=== PATIENT | male | born 1950 | race Caucasian/White ===

== ENCOUNTER 2021-10-17 16:50 | Inpatient (IN) ==
[2021-10-17] MEDS ORDERED: Ondansetron 4 MG/2 ML VIAL IVP PRN (19:20)
[2021-10-17] MEDS ORDERED: Naloxone 0.4 MG/ML INJ IVP PRN (19:20)
[2021-10-17] MEDS: 0.9 % Sodium Chloride 1,000 ML IVC SCH (20:11)
[2021-10-17] MEDS: Pantoprazole 40 MG VIAL IVP SCH (23:10)
[2021-10-17] MEDS ORDERED: Tetracaine/Benzocaine/Butamben 1 SPRAY AEROSOL MM ONE (23:52)
[2021-10-17] MEDS ORDERED: *HR* LORazepam 2 MG/ML VIAL IVP ONE (23:52)
[2021-10-18] MEDS ORDERED: *HR* LORazepam 2 MG/ML VIAL IVP ONE (02:30)
[2021-10-18] MEDS ORDERED: Tetracaine/Benzocaine/Butamben 1 SPRAY AEROSOL MM ONE (02:30)
[2021-10-18 03:30] LABS: Basophils # 0.1 K/mcL (0.0-0.2); Basophils % 0.4 %; Eosinophils # 1.1 K/mcL (0.0-0.6); Eosinophils % 8.4 %; Hematocrit 42.2 % (37.5-50.1); Hemoglobin 13.6 g/dL (12.9-16.9); Immature Granulocytes % 0.4 % (0-4); Lymphocytes # 1.3 K/mcL (0.6-4.6); Lymphocytes % 9.8 %; Mean Corpuscular HGB Conc 32.2 g/dL (31.6-35.5); Mean Corpuscular Hemoglobin 31.9 pg (28.0-33.3); Mean Corpuscular Volume 98.8 fL (83.0-100.0); Monocytes # 1.2 K/mcL (0.0-1.3); Monocytes % 9.3 %; Neutrophils # 9.4 K/mcL (1.6-8.9); Platelet Count 264 K/mcL (140-400); Prothrombin Time 11.3 Seconds (9.4-12.1); Red Blood Count 4.27 M/mcL (4.19-5.50); Segmented Neutrophils % 71.7 %; White Blood Count 13.1 K/mcL (4.3-11.1)
[2021-10-18] MEDS: 0.9 % Sodium Chloride 1,000 ML IVC SCH (03:34)
[2021-10-18 03:45] LABS: Calcium 8.8 mg/dL (8.6-10.3); Magnesium 1.9 mg/dL (1.6-2.6); Phosphorous 4.1 mg/dL (2.7-4.5); Potassium 2.9 mEq/L (3.5-5.1)
[2021-10-18] MEDS: *HR* Heparin 5,000 UNIT/ML VIAL SQ SCH ×3 (06:18→20:59)
[2021-10-18] MEDS ORDERED: Ipratropium/Albuterol Neb 3 ML IH PRN (07:10)
[2021-10-18] MEDS: Pantoprazole 40 MG VIAL IVP SCH (08:10)
[2021-10-18] MEDS: 0.9 % Sodium Chloride w KCl 20 MEQ/1,000 ML MLS IVC SCH ×2 (08:13→16:39)
[2021-10-18] MEDS: Clotrimazole 1% CRM 15 GM TUBE TP SCH ×2 (15:04→20:59)
[2021-10-18] MEDS: *HR* LORazepam 2 MG/ML VIAL IVP SCH (20:58)
[2021-10-18] MEDS: Budesonide/Formoterol 80/4.5 1 PUFF INH IH SCH (20:58)
[2021-10-18] MEDS ORDERED: ALPRAZolam 1 MG TABLET PO SCH (21:00)
[2021-10-19] MEDS: 0.9 % Sodium Chloride w KCl 20 MEQ/1,000 ML MLS IVC SCH ×4 (00:47→22:13)
[2021-10-19 05:07] LABS: Basophils # 0.1 K/mcL (0.0-0.2); Basophils % 0.6 %; Eosinophils # 0.6 K/mcL (0.0-0.6); Eosinophils % 6.6 %; Hematocrit 43.1 % (37.5-50.1); Hemoglobin 13.9 g/dL (12.9-16.9); Immature Granulocytes % 0.5 % (0-4); Lymphocytes # 1.3 K/mcL (0.6-4.6); Lymphocytes % 15.3 %; Mean Corpuscular HGB Conc 32.3 g/dL (31.6-35.5); Mean Corpuscular Hemoglobin 32.1 pg (28.0-33.3); Mean Corpuscular Volume 99.5 fL (83.0-100.0); Mean Platelet Volume 10.9 fL (9.4-12.4); Monocytes # 1.1 K/mcL (0.0-1.3); Neutrophils # 5.7 K/mcL (1.6-8.9); Platelet Count 249 K/mcL (140-400); Red Blood Count 4.33 M/mcL (4.19-5.50); Red Cell Distribution Width 13.2 % (11.5-14.5); White Blood Count 8.8 K/mcL (4.3-11.1)
[2021-10-19] MEDS: *HR* Heparin 5,000 UNIT/ML VIAL SQ SCH ×3 (05:54→22:14)
[2021-10-19] MEDS: Budesonide/Formoterol 80/4.5 1 PUFF INH IH SCH ×2 (07:51→22:57)
[2021-10-19 07:56] LABS: BUN/Creatinine Ratio 32 (6-26); Blood Urea Nitrogen 32 mg/dL (8-23); Carbon Dioxide 32 mEq/L (23-29); Chloride 97 mEq/L (98-107); Glucose 83 mg/dL (70-105); Osmolality,Calculated 296 (280-300); Potassium 3.3 mEq/L (3.5-5.1); Sodium 140 mEq/L (136-145); eGFR For African Americans > 60 (> 60); eGFR For Non-African Americans > 60 (> 60)
[2021-10-19] MEDS: Pantoprazole 40 MG VIAL IVP SCH (08:36)
[2021-10-19] MEDS: Clotrimazole 1% CRM 15 GM TUBE TP SCH ×2 (17:46→22:14)
[2021-10-19] MEDS: *HR* LORazepam 2 MG/ML VIAL IVP SCH (22:14)
[2021-10-19] MEDS: Piperacillin/Tazobactam 3.375 GM in 0.9 % Sodium Chloride Mini Bag 100 ML IVPB SCH (23:20)
[2021-10-20] MEDS ORDERED: Acetaminophen IV 1,000 MG/100 ML BAG IVPB ONE (01:00)
[2021-10-20] MEDS: Piperacillin/Tazobactam 3.375 GM in 0.9 % Sodium Chloride Mini Bag 100 ML IVPB SCH (06:23)
[2021-10-20] MEDS: 0.9 % Sodium Chloride w KCl 20 MEQ/1,000 ML MLS IVC SCH ×2 (06:24→14:32)
[2021-10-20] MEDS: *HR* Heparin 5,000 UNIT/ML VIAL SQ SCH ×3 (06:24→21:32)
[2021-10-20] MEDS ORDERED: Oxymetazoline Nasal SPRAY BOTTLE 15ML NS STA (07:45)
[2021-10-20] MEDS: Pantoprazole 40 MG VIAL IVP SCH (07:51)
[2021-10-20] MEDS ORDERED: *HR* FentaNYL (PF) 100 MCG/2 ML VIAL IVP PRN (08:19)
[2021-10-20] MEDS ORDERED: Racepinephrine Neb 0.5 ML VIAL IH PRN (08:19)
[2021-10-20] MEDS ORDERED: Ondansetron 4 MG/2 ML VIAL IVP PRN ×2 (08:19→12:15)
[2021-10-20] MEDS ORDERED: Acetaminophen IV 1,000 MG/100 ML BAG IVPB PRN (08:19)
[2021-10-20] MEDS ORDERED: *HR* Meperidine 25 MG/ML SYRINGE IVP PRN (08:19)
[2021-10-20] MEDS ORDERED: Albuterol 2.5 MG/3 ML NEBULIZER IH PRN (08:19)
[2021-10-20] MEDS ORDERED: *HR* OxyCODONE Immed Rel 5 MG TABLET PO PRN (08:19)
[2021-10-20] MEDS ORDERED: *HR* Labetalol 20 MG/4 ML SYRINGE IVP PRN (08:19)
[2021-10-20] MEDS ORDERED: Ipratropium Neb 0.5 MG NEBULIZER IH PRN (08:19)
[2021-10-20 08:27] LABS: Basophils # 0.1 K/mcL (0.0-0.2); Basophils % 0.6 %; Eosinophils # 0.4 K/mcL (0.0-0.6); Eosinophils % 3.8 %; Hematocrit 46.2 % (37.5-50.1); Hemoglobin 15.1 g/dL (12.9-16.9); Immature Granulocytes % 0.4 % (0-4); Lymphocytes # 1.5 K/mcL (0.6-4.6); Lymphocytes % 14.6 %; Mean Corpuscular HGB Conc 32.7 g/dL (31.6-35.5); Mean Corpuscular Hemoglobin 32.3 pg (28.0-33.3); Mean Corpuscular Volume 98.9 fL (83.0-100.0); Mean Platelet Volume 10.5 fL (9.4-12.4); Neutrophils # 7.1 K/mcL (1.6-8.9); Platelet Count 300 K/mcL (140-400); Red Blood Count 4.67 M/mcL (4.19-5.50); Red Cell Distribution Width 13.6 % (11.5-14.5); Segmented Neutrophils % 70.6 %; White Blood Count 10.1 K/mcL (4.3-11.1)
[2021-10-20 08:45] LABS: BUN/Creatinine Ratio 35 (6-26); Blood Urea Nitrogen 40 mg/dL (8-23); Calcium 9.9 mg/dL (8.6-10.3); Carbon Dioxide 35 mEq/L (23-29); Chloride 97 mEq/L (98-107); Glucose 96 mg/dL (70-105); Magnesium 2.3 mg/dL (1.6-2.6); Osmolality,Calculated 310 (280-300); Phosphorous 3.4 mg/dL (2.7-4.5); Potassium 3.7 mEq/L (3.5-5.1); Sodium 145 mEq/L (136-145); eGFR For African Americans > 60 (> 60); eGFR For Non-African Americans > 60 (> 60)
[2021-10-20] MEDS ORDERED: *HR* Propofol 200 MG/20 ML VIAL IVP ONE (08:49)
[2021-10-20] MEDS ORDERED: Lidocaine -MPF 2% 2 ML VIAL ONE (08:49)
[2021-10-20] MEDS ORDERED: Ketamine HCL *QUVA* 50mg (1mL) SYRINGE ONE ×2 (08:49→10:49)
[2021-10-20] MEDS ORDERED: Lidocaine -MPF 4% 5 ML AMPUL ONE (08:49)
[2021-10-20] MEDS ORDERED: *HR* Rocuronium Bromide 50 MG/5 ML VIAL ONE ×3 (08:49→10:02)
[2021-10-20] MEDS ORDERED: *HR* OxyCODONE Immed Rel 5 MG TABLET GTUBE PRN (09:06)
[2021-10-20] MEDS ORDERED: Ipratropium/Albuterol Neb 3 ML IH ONE (09:06)
[2021-10-20] MEDS ORDERED: Albumin Human 5% 25.0 GM/500 ML IV.SOLN ONE (09:12)
[2021-10-20] MEDS ORDERED: *HR* Succinylcholine 200 MG/10 ML VIAL IVP ONE (09:27)
[2021-10-20] MEDS ORDERED: *HR* FentaNYL (PF) 100 MCG/2 ML VIAL ONE ×2 (09:56→10:45)
[2021-10-20] MEDS ORDERED: *HR* Labetalol 20 MG/4 ML SYRINGE IVP ONE (09:59)
[2021-10-20] MEDS ORDERED: ROPIVACAINE/PF/NS 0.25% 1 EACH SYRINGE INTRAART ONE (10:23)
[2021-10-20] MEDS: Budesonide/Formoterol 80/4.5 1 PUFF INH IH SCH ×2 (10:27→20:08)
[2021-10-20] MEDS ORDERED: *HR* Midazolam HCl 2 MG/2 ML VIAL ONE (10:48)
[2021-10-20] MEDS ORDERED: *HR* HYDROMORPHONE 2 MG/ML VIAL ONE (10:48)
[2021-10-20] MEDS: *HR* HYDROmorphone PF 0.5 MG/0.5 ML SYRINGE IVP PRN ×6 (11:10→11:55)
[2021-10-20] MEDS ORDERED: *HR* HYDROmorphone (PF) 1 MG/ML SYRINGE ONE (11:49)
[2021-10-20] MEDS ORDERED: Naloxone 0.4 MG/ML INJ IVP PRN (12:15)
[2021-10-20] MEDS ORDERED: Ipratropium/Albuterol Neb 3 ML IH PRN (12:15)
[2021-10-20] MEDS: Clotrimazole 1% CRM 15 GM TUBE TP SCH (21:00)
[2021-10-20] MEDS: *HR* LORazepam 2 MG/ML VIAL IVP SCH (21:31)
[2021-10-20] MEDS ORDERED: *HR* HYDROmorphone PCA *PREMADE* 20 MG/1MG/ML (20mL) PCA VIAL IVC PRN (22:12)
[2021-10-20] MEDS ORDERED: *HR* HYDROmorphone (PF) 1 MG/ML SYRINGE IVP ONE (22:12)
[2021-10-21 04:16] LABS: Basophils % 0.3 %; Eosinophils # 0.1 K/mcL (0.0-0.6); Eosinophils % 0.6 %; Hematocrit 42.1 % (37.5-50.1); Hemoglobin 13.7 g/dL (12.9-16.9); Immature Granulocytes % 0.5 % (0-4); Lymphocytes # 1.5 K/mcL (0.6-4.6); Lymphocytes % 11.4 %; Mean Corpuscular HGB Conc 32.5 g/dL (31.6-35.5); Mean Corpuscular Hemoglobin 32.7 pg (28.0-33.3); Mean Corpuscular Volume 100.5 fL (83.0-100.0); Mean Platelet Volume 10.6 fL (9.4-12.4); Monocytes # 1.5 K/mcL (0.0-1.3); Monocytes % 11.7 %; Neutrophils # 9.9 K/mcL (1.6-8.9); Platelet Count 267 K/mcL (140-400); Red Blood Count 4.19 M/mcL (4.19-5.50); Red Cell Distribution Width 13.9 % (11.5-14.5); Segmented Neutrophils % 75.5 %; White Blood Count 13.1 K/mcL (4.3-11.1)
[2021-10-21 04:30] LABS: BUN/Creatinine Ratio 35 (6-26); Blood Urea Nitrogen 33 mg/dL (8-23); Calcium 8.8 mg/dL (8.6-10.3); Carbon Dioxide 34 mEq/L (23-29); Chloride 105 mEq/L (98-107); Glucose 98 mg/dL (70-105); Magnesium 1.9 mg/dL (1.6-2.6); Osmolality,Calculated 309 (280-300); Phosphorous 3.2 mg/dL (2.7-4.5); Potassium 3.8 mEq/L (3.5-5.1); Sodium 146 mEq/L (136-145); eGFR For African Americans > 60 (> 60); eGFR For Non-African Americans > 60 (> 60)
[2021-10-21] MEDS: *HR* Heparin 5,000 UNIT/ML VIAL SQ SCH ×3 (05:16→20:12)
[2021-10-21] MEDS: 0.9 % Sodium Chloride w KCl 20 MEQ/1,000 ML MLS IVC SCH ×2 (07:27→08:01)
[2021-10-21] MEDS: Pantoprazole 40 MG VIAL IVP SCH (07:54)
[2021-10-21] MEDS: Budesonide/Formoterol 80/4.5 1 PUFF INH IH SCH ×2 (07:56→20:22)
[2021-10-21] MEDS ORDERED: Acetaminophen IV 1,000 MG/100 ML BAG IVPB SCH (08:00)
[2021-10-21] MEDS ORDERED: Chloraseptic Spray 177 ML BOTTLE MM PRN (09:05)
[2021-10-21] MEDS ORDERED: Saliva Stimulant 44.3ml BOTTLE PO PRN (09:05)
[2021-10-21] MEDS: Acetaminophen IV 1,000 MG/100 ML BAG IVPB SCH ×3 (10:28→22:34)
[2021-10-21] MEDS: Acetylcysteine 10% 2 ML INHSOL IH SCH ×6 (11:18→23:49)
[2021-10-21] MEDS: Ipratropium/Albuterol Neb 3 ML IH SCH ×4 (11:24→23:49)
[2021-10-21] MEDS: Clotrimazole 1% CRM 15 GM TUBE TP SCH ×2 (13:16→22:34)
[2021-10-21] MEDS ORDERED: D5% in 0.45% NACL w KCl 20 MEQ/1,000 ML MLS IVC SCH (16:45)
[2021-10-21] MEDS: *HR* LORazepam 2 MG/ML VIAL IVP SCH (20:05)
[2021-10-21] MEDS ORDERED: *HR* Labetalol 20 MG/4 ML SYRINGE IVP ONE (23:55)
[2021-10-22] MEDS ORDERED: 0.9 % Sodium Chloride 500 ML IVC SCH (03:00)
[2021-10-22] MEDS: Acetaminophen IV 1,000 MG/100 ML BAG IVPB SCH ×4 (03:23→21:56)
[2021-10-22] MEDS: Acetylcysteine 10% 2 ML INHSOL IH SCH ×6 (04:05→23:38)
[2021-10-22] MEDS: Ipratropium/Albuterol Neb 3 ML IH SCH ×6 (04:05→23:38)
[2021-10-22] MEDS: *HR* Heparin 5,000 UNIT/ML VIAL SQ SCH ×3 (05:29→21:46)
[2021-10-22] MEDS: Budesonide/Formoterol 80/4.5 1 PUFF INH IH SCH ×2 (07:34→19:54)
[2021-10-22 08:02] LABS: Basophils # 0.1 K/mcL (0.0-0.2); Basophils % 0.5 %; Eosinophils # 0.9 K/mcL (0.0-0.6); Eosinophils % 8.1 %; Hemoglobin 13.4 g/dL (12.9-16.9); Immature Granulocytes % 0.6 % (0-4); Lymphocytes # 1.4 K/mcL (0.6-4.6); Lymphocytes % 12.8 %; Mean Corpuscular HGB Conc 31.9 g/dL (31.6-35.5); Mean Corpuscular Hemoglobin 32.4 pg (28.0-33.3); Mean Corpuscular Volume 101.4 fL (83.0-100.0); Mean Platelet Volume 10.8 fL (9.4-12.4); Monocytes % 9.1 %; Neutrophils # 7.7 K/mcL (1.6-8.9); Platelet Count 235 K/mcL (140-400); Red Blood Count 4.14 M/mcL (4.19-5.50); Red Cell Distribution Width 13.7 % (11.5-14.5); Segmented Neutrophils % 68.9 %; White Blood Count 11.1 K/mcL (4.3-11.1)
[2021-10-22] MEDS ORDERED: Furosemide 40 MG/4 ML VIAL IVP ONE (08:04)
[2021-10-22 08:07] LABS: BUN/Creatinine Ratio 33 (6-26); Blood Urea Nitrogen 28 mg/dL (8-23); Calcium 8.9 mg/dL (8.6-10.3); Carbon Dioxide 36 mEq/L (23-29); Chloride 105 mEq/L (98-107); Glucose 113 mg/dL (70-105); Magnesium 1.9 mg/dL (1.6-2.6); Osmolality,Calculated 308 (280-300); Phosphorous 2.7 mg/dL (2.7-4.5); Potassium 3.4 mEq/L (3.5-5.1); Sodium 146 mEq/L (136-145); eGFR For African Americans > 60 (> 60); eGFR For Non-African Americans > 60 (> 60)
[2021-10-22] MEDS: Pantoprazole 40 MG VIAL IVP SCH (09:50)
[2021-10-22] MEDS: Clotrimazole 1% CRM 15 GM TUBE TP SCH ×2 (09:51→21:45)
[2021-10-22] MEDS: Ketorolac 30 MG/ML VIAL IVP SCH ×2 (12:45→18:21)
[2021-10-22] MEDS ORDERED: D5% in Water 1,000 ML IVC SCH (15:00)
[2021-10-22] MEDS: *HR* LORazepam 2 MG/ML VIAL IVP SCH (21:40)
[2021-10-23] MEDS: Ketorolac 30 MG/ML VIAL IVP SCH ×4 (01:09→17:46)
[2021-10-23] MEDS: Acetylcysteine 10% 2 ML INHSOL IH SCH ×6 (03:40→23:37)
[2021-10-23] MEDS: Ipratropium/Albuterol Neb 3 ML IH SCH ×6 (03:40→23:37)
[2021-10-23] MEDS: Acetaminophen IV 1,000 MG/100 ML BAG IVPB SCH ×4 (05:58→21:43)
[2021-10-23] MEDS: *HR* Heparin 5,000 UNIT/ML VIAL SQ SCH ×3 (06:00→21:49)
[2021-10-23 06:19] LABS: Basophils # 0.1 K/mcL (0.0-0.2); Basophils % 0.6 %; Eosinophils # 1.5 K/mcL (0.0-0.6); Eosinophils % 11.3 %; Hematocrit 44.1 % (37.5-50.1); Hemoglobin 14.4 g/dL (12.9-16.9); Immature Granulocytes % 0.7 % (0-4); Lymphocytes # 1.8 K/mcL (0.6-4.6); Lymphocytes % 13.4 %; Mean Corpuscular HGB Conc 32.7 g/dL (31.6-35.5); Mean Corpuscular Hemoglobin 32.6 pg (28.0-33.3); Mean Corpuscular Volume 99.8 fL (83.0-100.0); Monocytes % 7.6 %; Neutrophils # 8.7 K/mcL (1.6-8.9); Platelet Count 189 K/mcL (140-400); Red Blood Count 4.42 M/mcL (4.19-5.50); Red Cell Distribution Width 13.3 % (11.5-14.5); Segmented Neutrophils % 66.4 %; White Blood Count 13.1 K/mcL (4.3-11.1)
[2021-10-23 07:11] LABS: BUN/Creatinine Ratio 35 (6-26); Blood Urea Nitrogen 33 mg/dL (8-23); Calcium 9.1 mg/dL (8.6-10.3); Carbon Dioxide 35 mEq/L (23-29); Chloride 100 mEq/L (98-107); Glucose 119 mg/dL (70-105); Magnesium 1.8 mg/dL (1.6-2.6); Osmolality,Calculated 302 (280-300); Phosphorous 2.9 mg/dL (2.7-4.5); Potassium 3.5 mEq/L (3.5-5.1); Sodium 142 mEq/L (136-145); eGFR For African Americans > 60 (> 60); eGFR For Non-African Americans > 60 (> 60)
[2021-10-23] MEDS: Budesonide/Formoterol 80/4.5 1 PUFF INH IH SCH ×2 (07:44→19:52)
[2021-10-23] MEDS: Pantoprazole 40 MG VIAL IVP SCH (10:28)
[2021-10-23] MEDS: Clotrimazole 1% CRM 15 GM TUBE TP SCH ×2 (10:30→21:49)
[2021-10-23] MEDS ORDERED: rOPINIRole 0.25 MG TABLET PO ONE (16:09)
[2021-10-23] MEDS ORDERED: ALPRAZolam 1 MG TABLET PO SCH (21:00)
[2021-10-23] MEDS: amLODIPine 5 MG TABLET PO SCH (21:45)
[2021-10-23] MEDS ORDERED: traZODone 50 MG TABLET PO PRN (23:26)
[2021-10-24] MEDS: Ipratropium/Albuterol Neb 3 ML IH SCH ×3 (03:14→11:16)
[2021-10-24] MEDS: Acetylcysteine 10% 2 ML INHSOL IH SCH ×3 (03:14→11:16)
[2021-10-24] MEDS ORDERED: rOPINIRole 0.25 MG TABLET PO SCH (03:15)
[2021-10-24] MEDS: Ketorolac 30 MG/ML VIAL IVP SCH ×2 (05:56→05:59)
[2021-10-24] MEDS: *HR* Heparin 5,000 UNIT/ML VIAL SQ SCH ×2 (06:00→14:24)
[2021-10-24] MEDS: Acetaminophen IV 1,000 MG/100 ML BAG IVPB SCH ×2 (06:41→09:28)
[2021-10-24 07:03] LABS: Basophils # 0.1 K/mcL (0.0-0.2); Basophils % 0.4 %; Eosinophils # 1.4 K/mcL (0.0-0.6); Eosinophils % 9.2 %; Hemoglobin 14.6 g/dL (12.9-16.9); Immature Granulocytes % 0.5 % (0-4); Lymphocytes # 1.9 K/mcL (0.6-4.6); Lymphocytes % 12.1 %; Mean Corpuscular HGB Conc 33.2 g/dL (31.6-35.5); Mean Corpuscular Hemoglobin 32.4 pg (28.0-33.3); Mean Corpuscular Volume 97.6 fL (83.0-100.0); Mean Platelet Volume 11.1 fL (9.4-12.4); Monocytes # 0.9 K/mcL (0.0-1.3); Monocytes % 5.7 %; Neutrophils # 11.1 K/mcL (1.6-8.9); Platelet Count 238 K/mcL (140-400); Red Blood Count 4.51 M/mcL (4.19-5.50); Red Cell Distribution Width 13.4 % (11.5-14.5); Segmented Neutrophils % 72.1 %; White Blood Count 15.4 K/mcL (4.3-11.1)
[2021-10-24 07:24] LABS: BUN/Creatinine Ratio 39 (6-26); Blood Urea Nitrogen 39 mg/dL (8-23); Calcium 8.4 mg/dL (8.6-10.3); Carbon Dioxide 35 mEq/L (23-29); Chloride 97 mEq/L (98-107); Glucose 106 mg/dL (70-105); Magnesium 1.7 mg/dL (1.6-2.6); Osmolality,Calculated 298 (280-300); Phosphorous 3.1 mg/dL (2.7-4.5); Potassium 3.1 mEq/L (3.5-5.1); Sodium 139 mEq/L (136-145); eGFR For African Americans > 60 (> 60); eGFR For Non-African Americans > 60 (> 60)
[2021-10-24] MEDS: Budesonide/Formoterol 80/4.5 1 PUFF INH IH SCH (07:36)
[2021-10-24] MEDS ORDERED: Lisinopril-HCTZ 20-12.5mg TABLET PO SCH (09:00)
[2021-10-24] MEDS: Pantoprazole 40 MG VIAL IVP SCH (09:16)
[2021-10-24] MEDS: amLODIPine 5 MG TABLET PO SCH (09:17)
[2021-10-24] MEDS: Clotrimazole 1% CRM 15 GM TUBE TP SCH (09:18)
[2021-10-24] MEDS ORDERED: methylPREDNISolone 125 MG/2 ML VIAL IVP ONE (09:20)
[2021-10-24] MEDS ORDERED: *HR* OxyCODONE/APAP 5/325 TABLET PO PRN (10:12)
[2021-10-24 10:29] VITALS: BP 134/79; PULSE 75; TEMP 98.9; O2SAT 93
== END 2021-10-24 14:45 | disposition home or self-care (01) | DRG 336 ==
LOC: 3ANU → SUATTDRO 18:41
PROVIDERS: ADMIT Internal Medicine; ATTEND Internal Medicine

== ENCOUNTER 2022-01-14 11:49 | Observation (INO) ==
[2022-01-14] MEDS ORDERED: Naloxone 0.4 MG/ML INJ IVP PRN (15:34)
[2022-01-14] MEDS ORDERED: Ondansetron 4 MG/2 ML VIAL IVP PRN (15:34)
[2022-01-14] MEDS: Piperacillin/Tazobactam 3.375 GM in 0.9 % Sodium Chloride Mini Bag 100 ML IVPB SCH (16:17)
[2022-01-14] MEDS: 0.9 % Sodium Chloride 1,000 ML IVC SCH (16:17)
[2022-01-14] MEDS: *HR* Heparin 5,000 UNIT/ML VIAL SQ SCH (18:19)
[2022-01-14] MEDS: Pantoprazole 40 MG VIAL IVP SCH (18:21)
[2022-01-14] MEDS ORDERED: Acetaminophen 325 MG TABLET PO ONE (20:16)
[2022-01-15] MEDS: Piperacillin/Tazobactam 3.375 GM in 0.9 % Sodium Chloride Mini Bag 100 ML IVPB SCH (01:22)
[2022-01-15 02:22] LABS: Basophils # 0.1 K/mcL (0.0-0.2); Basophils % 0.3 %; Eosinophils # 1.8 K/mcL (0.0-0.6); Eosinophils % 10.5 %; Hemoglobin 11.9 g/dL (12.9-16.9); Immature Granulocytes % 0.8 % (0-4); Lymphocytes # 2.2 K/mcL (0.6-4.6); Mean Corpuscular HGB Conc 32.2 g/dL (31.6-35.5); Mean Corpuscular Hemoglobin 30.5 pg (28.0-33.3); Mean Corpuscular Volume 94.9 fL (83.0-100.0); Monocytes # 1.2 K/mcL (0.0-1.3); Monocytes % 6.9 %; Neutrophils # 11.8 K/mcL (1.6-8.9); Platelet Count 300 K/mcL (140-400); Red Cell Distribution Width 13.7 % (11.5-14.5); Segmented Neutrophils % 68.5 %; White Blood Count 17.2 K/mcL (4.3-11.1)
[2022-01-15 02:42] LABS: BUN/Creatinine Ratio 22 (6-26); Blood Urea Nitrogen 17 mg/dL (8-23); Calcium 8.4 mg/dL (8.6-10.3); Carbon Dioxide 31 mEq/L (23-29); Chloride 102 mEq/L (98-107); Glucose 101 mg/dL (70-105); Osmolality,Calculated 288 (280-300); Potassium 3.7 mEq/L (3.5-5.1); Sodium 138 mEq/L (136-145)
[2022-01-15] MEDS: Pantoprazole 40 MG VIAL IVP SCH ×2 (06:01→17:36)
[2022-01-15] MEDS: 0.9 % Sodium Chloride 1,000 ML IVC SCH (06:02)
[2022-01-15] MEDS: *HR* Heparin 5,000 UNIT/ML VIAL SQ SCH ×2 (06:02→17:37)
[2022-01-15] MEDS ORDERED: MetroNIDAZOLE 500 MG/100 ML 500 MG/100 ML BAG IVPB SCH (08:00)
[2022-01-15] MEDS ORDERED: Lidocaine -MPF 2% 5 ML VIAL ONE (08:22)
[2022-01-15] MEDS ORDERED: *HR* Propofol 200 MG/20 ML VIAL IVP ONE (08:22)
[2022-01-15] MEDS ORDERED: Ondansetron 4 MG/2 ML VIAL ONE (08:22)
[2022-01-15] MEDS ORDERED: *HR* Succinylcholine 200 MG/10 ML VIAL IVP ONE (08:22)
[2022-01-15] MEDS ORDERED: ALPRAZolam 1 MG TABLET PO PRN (09:50)
[2022-01-15] MEDS: Sucralfate 1 GM TABLET PO SCH ×3 (12:43→20:34)
[2022-01-15] MEDS: Budesonide/Formoterol 80/4.5 1 PUFF INH IH SCH (22:42)
[2022-01-16] MEDS: *HR* Heparin 5,000 UNIT/ML VIAL SQ SCH (05:35)
[2022-01-16] MEDS: Pantoprazole 40 MG VIAL IVP SCH (06:23)
[2022-01-16 07:11] LABS: Hematocrit 33.1 % (37.5-50.1); Hemoglobin 10.8 g/dL (12.9-16.9); Mean Corpuscular HGB Conc 32.6 g/dL (31.6-35.5); Mean Corpuscular Volume 95.1 fL (83.0-100.0); Mean Platelet Volume 11.1 fL (9.4-12.4); Platelet Count 277 K/mcL (140-400); Red Blood Count 3.48 M/mcL (4.19-5.50); Red Cell Distribution Width 13.6 % (11.5-14.5); White Blood Count 13.5 K/mcL (4.3-11.1)
[2022-01-16 07:30] LABS: BUN/Creatinine Ratio 24 (6-26); Blood Urea Nitrogen 18 mg/dL (8-23); Calcium 8.6 mg/dL (8.6-10.3); Carbon Dioxide 33 mEq/L (23-29); Chloride 104 mEq/L (98-107); Glucose 102 mg/dL (70-105); Magnesium 2.1 mg/dL (1.6-2.6); Osmolality,Calculated 292 (280-300); Potassium 3.7 mEq/L (3.5-5.1); Sodium 140 mEq/L (136-145)
[2022-01-16] MEDS: Sucralfate 1 GM TABLET PO SCH ×2 (08:39→11:40)
[2022-01-16] MEDS ORDERED: lisinopriL 20 MG TABLET PO SCH (09:00)
[2022-01-16] MEDS ORDERED: hydroCHLOROthiazide 25 MG TABLET PO SCH (09:00)
[2022-01-16] MEDS ORDERED: Aspirin Enteric Coated 81 MG Tablet PO SCH (09:00)
[2022-01-16] MEDS: Budesonide/Formoterol 80/4.5 1 PUFF INH IH SCH (10:27)
[2022-01-16 11:19] VITALS: BP 142/65; PULSE 50; TEMP 98; O2SAT 90
== END 2022-01-16 12:32 | disposition home or self-care (01) ==
LOC: 3ANU
PROVIDERS: ADMIT Internal Medicine; ATTEND Internal Medicine
PROC: ENDOEBX (2022-01-15 10:00)